=== PATIENT | female | born 1980 | race Caucasian/White ===

== ENCOUNTER 2017-05-02 10:38 | Emergency (ER) | payer BC ==
[2017-05-02] MEDS: SOD CHLORIDE 0.9% 1,000 ML IV (12:06)
[2017-05-02] MEDS: ONDANSETRON 4 MG INJ IV (12:06)
[2017-05-02] MEDS: LORAZEPAM 2 MG INJ IV (12:06)
[2017-05-02] MEDS: FAMOTIDINE 20 MG INJ IV (12:07)
[2017-05-02 12:16] LABS: ADD MAN DIFF? NO
[2017-05-02 12:18] LABS: WHITE BLOOD COUNT 13.1 10^3/ul (4.8-10.8)
[2017-05-02 12:18] LABS: BASOPHIL # 0.1 10^3/ul (0.0-0.1); BASOPHILS % 0.5 % (0.0-2.0); EOSINOPHILS # 0.1 10^3/ul (0.0-0.5); EOSINOPHILS % 0.4 % (0.0-7.0); HEMATOCRIT 35.3 % (37.0-47.0); HEMOGLOBIN 11.7 g/dl (12.0-16.0); LYMPHOCYTES % 23.1 % (15.0-51.0); MEAN CORPUSCULAR HEMOGLOBIN 27.2 pg (29.0-33.0); MEAN CORPUSCULAR HGB CONC 33.1 g/dl (32.0-37.0); MEAN CORPUSCULAR VOLUME 82.1 fl (82.0-101.0); MEAN PLATELET VOLUME 9.6 fl (7.4-10.4); MONOCYTE # 0.8 10^3/ul (0.3-0.9); MONOCYTES % 5.7 % (0.0-11.0); NEUTROPHIL # 9.2 10^3/ul (1.6-7.5); PLATELET COUNT 526 10^3/UL (140-415); RED CELL DISTRIBUTION WIDTH 15.6 % (11.5-14.5)
[2017-05-02 12:44] LABS: ALANINE AMINOTRANSFERASE 36 IU/L (13-69); ALBUMIN 4.8 g/dl (3.3-4.9); ALBUMIN/GLOBULIN RATIO 1.45; ALKALINE PHOSPHATASE 117 IU/L (42-121); ANION GAP 19 (8-16); ASPARTATE AMINO TRANSFERASE 33 IU/L (15-46); BILIRUBIN,INDIRECT 0.1 mg/dl (0-1.1); BILIRUBIN,TOTAL 0.1 mg/dl (0.2-1.3); BLOOD UREA NITROGEN 16 mg/dl (7-20); CALCIUM 10.1 mg/dl (8.4-10.2); CARBON DIOXIDE 28 mmol/L (21-31); CHLORIDE 103 mmol/L (97-110); CREATININE 0.73 mg/dl (0.44-1.00); GLUCOSE 204 mg/dl (70-220); LIPASE 95 U/L (23-300); POTASSIUM 4.4 mmol/L (3.5-5.1); SODIUM 146 mmol/L (135-144); TOTAL PROTEIN 8.1 g/dl (6.1-8.1)
[2017-05-02] MEDS: LIDOCAINE/MYLANTA 40 ML BTL PO (13:13)
[2017-05-02 13:55] LABS: ADD UMIC YES; UR ASCORBIC ACID NEGATIVE (NEGATIVE); UR BACTERIA FEW /HPF (NONE SEEN); UR BILIRUBIN (Dip) NEGATIVE (NEGATIVE); UR BLOOD (Dip) 1+ mg/dL (NEGATIVE); UR CLARITY CLEAR (CLEAR); UR COLOR YELLOW (YELLOW); UR GLUCOSE (Dip) NEGATIVE (NEGATIVE); UR KETONES (Dip) NEGATIVE (NEGATIVE); UR LEUKOCYTE ESTERASE (Dip) NEGATIVE Leu/ul (NEGATIVE); UR NITRITE (Dip) NEGATIVE (NEGATIVE); UR RBC 3 /HPF (0-5); UR SPECIFIC GRAVITY (Dip) 1.018 (1.003-1.030); UR SQUAMOUS EPITHELIAL CELL FEW /HPF (FEW); UR TOTAL PROTEIN (Dip) NEGATIVE (NEGATIVE); UR UROBILINOGEN (Dip) NEGATIVE (NEGATIVE); UR WBC 3 /HPF (0-5)
== END 2017-05-02 13:52 | disposition home or self-care (01) ==
LOC: FTE 10:38
DX: K31.84 Gastroparesis (principal); F41.9 Anxiety disorder, unspecified; I10 Essential (primary) hypertension; E11.9 Type 2 diabetes mellitus without complications; Z79.4 Long term (current) use of insulin
CPT/HCPCS: 36415; 80053; 81001; 83690; 85025; 96374; 96375; 99284-25

== ENCOUNTER 2017-07-01 08:29 | Emergency (ER) | payer BC ==
[2017-07-01] MEDS: ONDANSETRON 4 MG INJ IV (09:05)
[2017-07-01] MEDS: SOD CHLORIDE 0.9% 1,000 ML IV (09:05)
[2017-07-01] MEDS: morphine 4 MG/ML VIAL IV ×2 (09:05→09:49)
[2017-07-01 09:29] LABS: ADD MAN DIFF? NO
[2017-07-01 09:31] LABS: BASOPHILS % 0.3 % (0.0-2.0); EOSINOPHILS % 0.4 % (0.0-7.0); HEMATOCRIT 37.1 % (37.0-47.0); HEMOGLOBIN 11.8 g/dl (12.0-16.0); LYMPHOCYTES # 2.2 10^3/ul (0.8-2.9); LYMPHOCYTES % 23.8 % (15.0-51.0); MEAN CORPUSCULAR HEMOGLOBIN 27.3 pg (29.0-33.0); MEAN CORPUSCULAR HGB CONC 31.8 g/dl (32.0-37.0); MEAN CORPUSCULAR VOLUME 85.9 fl (82.0-101.0); MEAN PLATELET VOLUME 9.4 fl (7.4-10.4); MONOCYTE # 0.7 10^3/ul (0.3-0.9); MONOCYTES % 7.2 % (0.0-11.0); NEUTROPHIL # 6.1 10^3/ul (1.6-7.5); NEUTROPHILS % 68.1 % (39.0-77.0); PLATELET COUNT 511 10^3/UL (140-415); RED BLOOD COUNT 4.32 10^6/ul (4.20-5.40); RED CELL DISTRIBUTION WIDTH 14.6 % (11.5-14.5)
[2017-07-01] MEDS: LORAZEPAM 1 MG TAB PO (09:49)
[2017-07-01 10:01] LABS: ALANINE AMINOTRANSFERASE 33 IU/L (13-69); ALBUMIN 4.3 g/dl (3.3-4.9); ALBUMIN/GLOBULIN RATIO 1.26; ALKALINE PHOSPHATASE 98 IU/L (42-121); ANION GAP 19 (8-16); ASPARTATE AMINO TRANSFERASE 30 IU/L (15-46); BILIRUBIN,INDIRECT 0.3 mg/dl (0-1.1); BILIRUBIN,TOTAL 0.3 mg/dl (0.2-1.3); BLOOD UREA NITROGEN 10 mg/dl (7-20); CALCIUM 9.9 mg/dl (8.4-10.2); CARBON DIOXIDE 26 mmol/L (21-31); CHLORIDE 100 mmol/L (97-110); CREATININE 0.71 mg/dl (0.44-1.00); GLUCOSE 212 mg/dl (70-220); LIPASE 59 U/L (23-300); POTASSIUM 4.2 mmol/L (3.5-5.1); SODIUM 141 mmol/L (135-144); TOTAL PROTEIN 7.7 g/dl (6.1-8.1)
[2017-07-01 11:03] LABS: ADD UMIC YES; UR ASCORBIC ACID 20 mg/dL (NEGATIVE); UR BACTERIA FEW /HPF (NONE SEEN); UR BILIRUBIN (Dip) NEGATIVE (NEGATIVE); UR BLOOD (Dip) NEGATIVE (NEGATIVE); UR CLARITY CLOUDY (CLEAR); UR COLOR RED (YELLOW); UR GLUCOSE (Dip) NEGATIVE (NEGATIVE); UR KETONES (Dip) NEGATIVE (NEGATIVE); UR LEUKOCYTE ESTERASE (Dip) TRACE Leu/ul (NEGATIVE); UR MUCUS FEW /HPF (NONE SEEN); UR NITRITE (Dip) NEGATIVE (NEGATIVE); UR RBC 3 /HPF (0-5); UR SPECIFIC GRAVITY (Dip) 1.018 (1.003-1.030); UR SQUAMOUS EPITHELIAL CELL MANY /HPF (FEW); UR TOTAL PROTEIN (Dip) 1+ mg/dl (NEGATIVE); UR UROBILINOGEN (Dip) 2+ mg/dL (NEGATIVE); UR WBC 18 /HPF (0-5)
== END 2017-07-01 11:32 | disposition home or self-care (01) ==
LOC: FTE 08:29
DX: K31.84 Gastroparesis (principal); E11.9 Type 2 diabetes mellitus without complications; I10 Essential (primary) hypertension; Z79.4 Long term (current) use of insulin
CPT/HCPCS: 36415; 80053; 81001; 81025; 83690; 85025; 96374; 96375; 99284-25

== ENCOUNTER 2017-07-04 11:37 | Emergency (ER) | payer BC ==
[2017-07-04] MEDS: LORAZEPAM 2 MG INJ IV (12:42)
[2017-07-04] MEDS: SOD CHLORIDE 0.9% 1,000 ML IV (12:42)
[2017-07-04] MEDS: DICYCLOMINE 20 MG INJ IM (12:58)
[2017-07-04] MEDS: METOCLOPRAMIDE 10 MG INJ IM (15:10)
== END 2017-07-04 15:10 | disposition home or self-care (01) ==
LOC: FTE 11:37
DX: K31.84 Gastroparesis (principal); I10 Essential (primary) hypertension; E11.9 Type 2 diabetes mellitus without complications; Z79.4 Long term (current) use of insulin
CPT/HCPCS: 96372; 96374; 99284-25

== ENCOUNTER 2017-07-09 18:53 | Emergency (ER) | payer BC ==
[2017-07-09] MEDS ORDERED: ONDANSETRON (ODT) 4 MG TAB ODT (19:51)
[2017-07-09] MEDS: METOCLOPRAMIDE 10 MG INJ IM (20:00)
[2017-07-09] MEDS: FAMOTIDINE 20 MG TAB PO (20:00)
[2017-07-09] MEDS: LORAZEPAM 2 MG INJ IM (20:00)
[2017-07-09 20:23] LABS: ADD MAN DIFF? NO
[2017-07-09 20:25] LABS: BASOPHILS % 0.3 % (0.0-2.0); EOSINOPHILS % 0.1 % (0.0-7.0); HEMATOCRIT 37.3 % (37.0-47.0); HEMOGLOBIN 11.9 g/dl (12.0-16.0); LYMPHOCYTES # 1.9 10^3/ul (0.8-2.9); LYMPHOCYTES % 15.9 % (15.0-51.0); MEAN CORPUSCULAR HEMOGLOBIN 27.4 pg (29.0-33.0); MEAN CORPUSCULAR HGB CONC 31.9 g/dl (32.0-37.0); MEAN CORPUSCULAR VOLUME 85.9 fl (82.0-101.0); MEAN PLATELET VOLUME 9.4 fl (7.4-10.4); MONOCYTE # 0.6 10^3/ul (0.3-0.9); MONOCYTES % 5.4 % (0.0-11.0); NEUTROPHIL # 9.3 10^3/ul (1.6-7.5); PLATELET COUNT 533 10^3/UL (140-415); RED BLOOD COUNT 4.34 10^6/ul (4.20-5.40); RED CELL DISTRIBUTION WIDTH 13.8 % (11.5-14.5)
[2017-07-09 20:25] LABS: WHITE BLOOD COUNT 11.9 10^3/ul (4.8-10.8)
[2017-07-09 20:48] LABS: ANION GAP 20 (8-16); BLOOD UREA NITROGEN 17 mg/dl (7-20); CALCIUM 10.2 mg/dl (8.4-10.2); CARBON DIOXIDE 27 mmol/L (21-31); CHLORIDE 101 mmol/L (97-110); CREATININE 0.89 mg/dl (0.44-1.00); GLUCOSE 171 mg/dl (70-220); POTASSIUM 4.9 mmol/L (3.5-5.1); SODIUM 143 mmol/L (135-144)
[2017-07-09] MEDS: morphine 4 MG/ML VIAL IV (21:16)
[2017-07-09] MEDS: SOD CHLORIDE 0.9% 1,000 ML IV (21:16)
[2017-07-09] MEDS: ONDANSETRON 4 MG INJ IV ×2 (21:16→22:46)
[2017-07-09] MEDS: HYDROmorphONE 1 MG/5 ML IV SYRINGE IV (22:47)
== END 2017-07-10 00:13 | disposition home or self-care (01) ==
LOC: FTE 07-10 00:13
DX: F41.9 Anxiety disorder, unspecified (principal); R10.84 Generalized abdominal pain; E11.9 Type 2 diabetes mellitus without complications; I10 Essential (primary) hypertension; R11.2 Nausea with vomiting, unspecified; Z79.4 Long term (current) use of insulin
CPT/HCPCS: 80048; 85025; 93005; 96372; 96374; 96375; 96376; 99284-25

== ENCOUNTER 2017-07-15 10:52 | Emergency (ER) | payer BC ==
[2017-07-15] MEDS: clonAZEPAM 0.5 MG TAB PO (12:48)
== END 2017-07-15 13:38 | disposition home or self-care (01) ==
LOC: E/R 10:52
DX: F41.1 Generalized anxiety disorder (principal); I10 Essential (primary) hypertension; E11.9 Type 2 diabetes mellitus without complications; Z79.4 Long term (current) use of insulin
CPT/HCPCS: 36415; 99283-25

== ENCOUNTER 2017-08-21 12:01 | Inpatient (IN) | payer BC ==
[2017-08-21 13:10] LABS: ADD MAN DIFF? NO
[2017-08-21 13:11] LABS: WHITE BLOOD COUNT 9.6 10^3/ul (4.8-10.8)
[2017-08-21 13:11] LABS: BASOPHILS % 0.3 % (0.0-2.0); EOSINOPHILS # 0.1 10^3/ul (0.0-0.5); EOSINOPHILS % 0.7 % (0.0-7.0); HEMATOCRIT 37.5 % (37.0-47.0); LYMPHOCYTES % 20.6 % (15.0-51.0); MEAN CORPUSCULAR HEMOGLOBIN 26.8 pg (29.0-33.0); MEAN CORPUSCULAR VOLUME 83.9 fl (82.0-101.0); MEAN PLATELET VOLUME 9.1 fl (7.4-10.4); MONOCYTE # 0.6 10^3/ul (0.3-0.9); MONOCYTES % 6.1 % (0.0-11.0); NEUTROPHIL # 6.9 10^3/ul (1.6-7.5); PLATELET COUNT 502 10^3/UL (140-415); RED BLOOD COUNT 4.47 10^6/ul (4.20-5.40); RED CELL DISTRIBUTION WIDTH 13.1 % (11.5-14.5)
[2017-08-21] MEDS: ONDANSETRON 4 MG INJ IV ×2 (13:16→13:51)
[2017-08-21] MEDS: SOD CHLORIDE 0.9% 1,000 ML IV ×2 (13:16→13:54)
[2017-08-21] MEDS: DICYCLOMINE 20 MG INJ IM (13:16)
[2017-08-21 13:21] LABS: ADD UMIC NO; UR ASCORBIC ACID NEGATIVE (NEGATIVE); UR BILIRUBIN (Dip) NEGATIVE (NEGATIVE); UR BLOOD (Dip) NEGATIVE (NEGATIVE); UR CLARITY CLEAR (CLEAR); UR COLOR YELLOW (YELLOW); UR GLUCOSE (Dip) 1+ mg/dL (NEGATIVE); UR KETONES (Dip) NEGATIVE (NEGATIVE); UR LEUKOCYTE ESTERASE (Dip) NEGATIVE Leu/ul (NEGATIVE); UR NITRITE (Dip) NEGATIVE (NEGATIVE); UR SPECIFIC GRAVITY (Dip) 1.018 (1.003-1.030); UR TOTAL PROTEIN (Dip) NEGATIVE (NEGATIVE); UR UROBILINOGEN (Dip) NEGATIVE (NEGATIVE)
[2017-08-21 13:30] LABS: ALANINE AMINOTRANSFERASE 25 IU/L (13-69); ALBUMIN 4.8 g/dl (3.3-4.9); ALBUMIN/GLOBULIN RATIO 1.23; ALKALINE PHOSPHATASE 122 IU/L (42-121); ANION GAP 16 (8-16); ASPARTATE AMINO TRANSFERASE 23 IU/L (15-46); BILIRUBIN,INDIRECT 0.3 mg/dl (0-1.1); BILIRUBIN,TOTAL 0.3 mg/dl (0.2-1.3); BLOOD UREA NITROGEN 14 mg/dl (7-20); CALCIUM 10.1 mg/dl (8.4-10.2); CARBON DIOXIDE 28 mmol/L (21-31); CHLORIDE 100 mmol/L (97-110); CREATININE 0.69 mg/dl (0.44-1.00); GLUCOSE 244 mg/dl (70-220); LIPASE 1422 U/L (23-300); POTASSIUM 4.7 mmol/L (3.5-5.1); SODIUM 139 mmol/L (135-144); TOTAL PROTEIN 8.7 g/dl (6.1-8.1)
[2017-08-21] MEDS: HYDROmorphONE 0.5 MG/0.5 ML SYG IV ×3 (13:51→22:56)
[2017-08-21] MEDS ORDERED: NACL 0.9% 3 ML SYG IV (14:30)
[2017-08-21 14:33] LABS: CHOLESTEROL 255 mg/dl (100-200)
[2017-08-21 14:33] LABS: CHOL/HDL RATIO 3.3 RATIO; HDL CHOLESTEROL 77 mg/dl (34-82); LDL CHOLESTEROL,CALCULATED 130 mg/dl; TRIGLYCERIDES 242 mg/dl (0-149)
[2017-08-21 14:36] LABS: HEMOGLOBIN A1C 7.9 % (0-5.9)
[2017-08-21] MEDS ORDERED: GLUCOSE GEL 15 GRAM TUBE PO ×2 (15:00)
[2017-08-21] MEDS ORDERED: GLUCOSE GEL 15 GRAM TUBE BUCCAL (15:00)
[2017-08-21] MEDS ORDERED: DEXTROSE 50% 50 ML SYRINGE IV ×2 (15:00)
[2017-08-21] MEDS ORDERED: GLUCAGON 1 MG INJ IM (15:00)
[2017-08-21] MEDS: DEXTROSE 5%-0.45% NACL 1,000 ML IV (15:28)
[2017-08-21] MEDS: morphine 2 MG INJ IV (15:40)
[2017-08-21] MEDS: PANTOPRAZOLE 40 MG INJ IV (17:07)
[2017-08-21] MEDS: METOCLOPRAMIDE 10 MG INJ IV (17:59)
[2017-08-21] MEDS: INSULIN ASPART [NOVOLOG] 3 ML PEN SC ×2 (18:56→21:00)
[2017-08-21] MEDS ORDERED: clonAZEPAM 0.5 MG TAB PO (21:00)
[2017-08-21] MEDS: GABAPENTIN 300 MG CAP PO (21:00)
[2017-08-21] MEDS: INSULIN GLARGINE [LANtus] 3 ML PEN SC (21:11)
[2017-08-22] MEDS: morphine 2 MG INJ IV (02:57)
[2017-08-22] MEDS: LORAZEPAM 2 MG INJ IV (03:19)
[2017-08-22] MEDS: DEXTROSE 5%-0.45% NACL 1,000 ML IV (04:15)
[2017-08-22 05:07] LABS: ADD MAN DIFF? NO
[2017-08-22 05:09] LABS: WHITE BLOOD COUNT 9.3 10^3/ul (4.8-10.8)
[2017-08-22 05:09] LABS: BASOPHILS % 0.3 % (0.0-2.0); EOSINOPHILS # 0.1 10^3/ul (0.0-0.5); EOSINOPHILS % 0.8 % (0.0-7.0); HEMATOCRIT 30.9 % (37.0-47.0); HEMOGLOBIN 9.8 g/dl (12.0-16.0); LYMPHOCYTES # 1.1 10^3/ul (0.8-2.9); LYMPHOCYTES % 12.2 % (15.0-51.0); MEAN CORPUSCULAR HEMOGLOBIN 26.5 pg (29.0-33.0); MEAN CORPUSCULAR HGB CONC 31.7 g/dl (32.0-37.0); MEAN CORPUSCULAR VOLUME 83.5 fl (82.0-101.0); MEAN PLATELET VOLUME 9.2 fl (7.4-10.4); MONOCYTE # 0.7 10^3/ul (0.3-0.9); MONOCYTES % 7.7 % (0.0-11.0); NEUTROPHIL # 7.3 10^3/ul (1.6-7.5); NEUTROPHILS % 78.6 % (39.0-77.0); PLATELET COUNT 406 10^3/UL (140-415)
[2017-08-22] MEDS: PANTOPRAZOLE 40 MG INJ IV ×2 (05:25→17:22)
[2017-08-22 05:28] LABS: LIPASE 54 U/L (23-300)
[2017-08-22 05:46] LABS: ALANINE AMINOTRANSFERASE 24 IU/L (13-69); ALBUMIN 3.6 g/dl (3.3-4.9); ALBUMIN/GLOBULIN RATIO 1.24; ALKALINE PHOSPHATASE 77 IU/L (42-121); ANION GAP 11 (8-16); ASPARTATE AMINO TRANSFERASE 19 IU/L (15-46); BILIRUBIN,INDIRECT 0.4 mg/dl (0-1.1); BILIRUBIN,TOTAL 0.4 mg/dl (0.2-1.3); BLOOD UREA NITROGEN 8 mg/dl (7-20); CALCIUM 8.9 mg/dl (8.4-10.2); CARBON DIOXIDE 28 mmol/L (21-31); CHLORIDE 103 mmol/L (97-110); CREATININE 0.65 mg/dl (0.44-1.00); GLUCOSE 137 mg/dl (70-220); MAGNESIUM 1.6 mg/dl (1.7-2.5); POTASSIUM 3.7 mmol/L (3.5-5.1); SODIUM 138 mmol/L (135-144); TOTAL PROTEIN 6.5 g/dl (6.1-8.1)
[2017-08-22] MEDS: HYDROmorphONE 0.5 MG/0.5 ML SYG IV ×4 (06:45→22:35)
[2017-08-22] MEDS: INSULIN ASPART [NOVOLOG] 3 ML PEN SC ×4 (08:03→21:00)
[2017-08-22] MEDS: BUPROPION (XL) 150 MG TAB PO (09:00)
[2017-08-22] MEDS: LISINOPRIL 20 MG TAB PO (09:00)
[2017-08-22] MEDS: METOCLOPRAMIDE 10 MG INJ IV ×2 (10:01→20:59)
[2017-08-22] MEDS: MAGNESIUM SULFATE 2 GM/50 ML 50 ML IVPB (12:13)
[2017-08-22] MEDS: POTASSIUM CHLORIDE 10 MEQ in SOD CHLORIDE 0.45% 1,000 ML IV ×2 (13:10→22:00)
[2017-08-22 19:45] LABS: HEPATITIS B SURFACE ANTIGEN NEGATIVE (NEGATIVE)
[2017-08-22 20:02] LABS: HEPATITIS C VIRAL ANTIBODY NEGATIVE (NEGATIVE)
[2017-08-22 20:03] LABS: HEPATITIS B SURFACE ANTIBODY NEGATIVE (NEGATIVE)
[2017-08-22] MEDS: GABAPENTIN 300 MG CAP PO (20:59)
[2017-08-22] MEDS: INSULIN GLARGINE [LANtus] 3 ML PEN SC (21:06)
[2017-08-23] MEDS: morphine LIQ (10 MG/5 ML) CUP PO (01:15)
[2017-08-23] MEDS: METOCLOPRAMIDE 10 MG INJ IV ×2 (03:14→08:59)
[2017-08-23] MEDS: HYDROmorphONE 0.5 MG/0.5 ML SYG IV ×2 (03:15→10:43)
[2017-08-23] MEDS: PANTOPRAZOLE 40 MG INJ IV (05:23)
[2017-08-23] MEDS: LORAZEPAM 2 MG INJ IV ×2 (05:24→13:27)
[2017-08-23 05:54] LABS: ADD MAN DIFF? NO
[2017-08-23 06:00] LABS: BASOPHILS % 0.3 % (0.0-2.0); EOSINOPHILS # 0.1 10^3/ul (0.0-0.5); EOSINOPHILS % 0.9 % (0.0-7.0); HEMOGLOBIN 10.4 g/dl (12.0-16.0); LYMPHOCYTES # 1.4 10^3/ul (0.8-2.9); LYMPHOCYTES % 23.9 % (15.0-51.0); MEAN CORPUSCULAR HEMOGLOBIN 26.2 pg (29.0-33.0); MEAN CORPUSCULAR HGB CONC 31.5 g/dl (32.0-37.0); MEAN CORPUSCULAR VOLUME 83.1 fl (82.0-101.0); MEAN PLATELET VOLUME 9.5 fl (7.4-10.4); MONOCYTE # 0.7 10^3/ul (0.3-0.9); MONOCYTES % 12.1 % (0.0-11.0); NEUTROPHIL # 3.7 10^3/ul (1.6-7.5); NEUTROPHILS % 62.5 % (39.0-77.0); PLATELET COUNT 408 10^3/UL (140-415); RED BLOOD COUNT 3.97 10^6/ul (4.20-5.40)
[2017-08-23 06:00] LABS: WHITE BLOOD COUNT 5.9 10^3/ul (4.8-10.8)
[2017-08-23 06:25] LABS: ALANINE AMINOTRANSFERASE 24 IU/L (13-69); ALBUMIN 3.8 g/dl (3.3-4.9); ALBUMIN/GLOBULIN RATIO 1.15; ALKALINE PHOSPHATASE 81 IU/L (42-121); ANION GAP 12 (8-16); ASPARTATE AMINO TRANSFERASE 23 IU/L (15-46); BILIRUBIN,INDIRECT 0.4 mg/dl (0-1.1); BILIRUBIN,TOTAL 0.4 mg/dl (0.2-1.3); BLOOD UREA NITROGEN 7 mg/dl (7-20); CALCIUM 9.3 mg/dl (8.4-10.2); CARBON DIOXIDE 27 mmol/L (21-31); CHLORIDE 103 mmol/L (97-110); CREATININE 0.66 mg/dl (0.44-1.00); GLUCOSE 111 mg/dl (70-220); POTASSIUM 4.2 mmol/L (3.5-5.1); SODIUM 138 mmol/L (135-144); TOTAL PROTEIN 7.1 g/dl (6.1-8.1)
[2017-08-23] MEDS: INSULIN ASPART [NOVOLOG] 3 ML PEN SC ×2 (07:35→11:45)
[2017-08-23] MEDS: POTASSIUM CHLORIDE 10 MEQ in SOD CHLORIDE 0.45% 1,000 ML IV ×2 (08:00→11:45)
[2017-08-23] MEDS: BARIUM SULF 2% 450 ML BTL (BERRY SMOOTHIE) PO (08:58)
[2017-08-23] MEDS: BUPROPION (XL) 150 MG TAB PO (09:00)
[2017-08-23] MEDS: LISINOPRIL 20 MG TAB PO (09:00)
[2017-08-23] MEDS: IODIXANOL LOCM 100 ML BTL (13:28)
[2017-08-23] MEDS: SOD CHLORIDE 0.9% 100 ML (13:28)
== END 2017-08-23 17:27 | disposition home or self-care (01) | DRG 440 ==
LOC: FTE 12:01 → MS3 14:00
DX: K85.90 Acute pancreatitis without necrosis or infection, unspecified (principal); I10 Essential (primary) hypertension; E11.43 Type 2 diabetes mellitus with diabetic autonomic (poly)neuropathy; K31.84 Gastroparesis; F41.9 Anxiety disorder, unspecified; F12.10 Cannabis abuse, uncomplicated; D64.9 Anemia, unspecified; E83.42 Hypomagnesemia; F17.210 Nicotine dependence, cigarettes, uncomplicated
CPT/HCPCS: 74177; 76705; 80053; 80061; 81003; 81025; 82962; 83036; 83690; 83735; 85025; 86706; 86708; 86709; 86803; 87340

== ENCOUNTER 2017-08-27 21:53 | Emergency (ER) | payer BC ==
[2017-08-27] MEDS: ONDANSETRON 4 MG INJ IV (23:18)
[2017-08-27] MEDS: SOD CHLORIDE 0.9% 1,000 ML IV (23:18)
[2017-08-27] MEDS: HYDROmorphONE 0.5 MG/0.5 ML SYG IV (23:18)
[2017-08-27 23:21] LABS: ADD MAN DIFF? NO
[2017-08-27 23:25] LABS: BASOPHILS % 0.2 % (0.0-2.0); EOSINOPHILS # 0.1 10^3/ul (0.0-0.5); EOSINOPHILS % 0.6 % (0.0-7.0); HEMATOCRIT 33.8 % (37.0-47.0); HEMOGLOBIN 10.6 g/dl (12.0-16.0); LYMPHOCYTES # 2.2 10^3/ul (0.8-2.9); LYMPHOCYTES % 22.7 % (15.0-51.0); MEAN CORPUSCULAR HGB CONC 31.4 g/dl (32.0-37.0); MEAN PLATELET VOLUME 9.7 fl (7.4-10.4); MONOCYTE # 0.9 10^3/ul (0.3-0.9); NEUTROPHIL # 6.4 10^3/ul (1.6-7.5); NEUTROPHILS % 67.2 % (39.0-77.0); PLATELET COUNT 502 10^3/UL (140-415); RED BLOOD COUNT 4.07 10^6/ul (4.20-5.40); RED CELL DISTRIBUTION WIDTH 13.1 % (11.5-14.5)
[2017-08-27 23:25] LABS: WHITE BLOOD COUNT 9.5 10^3/ul (4.8-10.8)
[2017-08-27 23:38] LABS: ADD UMIC YES; UR ASCORBIC ACID NEGATIVE (NEGATIVE); UR BACTERIA FEW /HPF (NONE SEEN); UR BILIRUBIN (Dip) NEGATIVE (NEGATIVE); UR BLOOD (Dip) NEGATIVE (NEGATIVE); UR CLARITY SLIGHTLY CLOUDY (CLEAR); UR COLOR YELLOW (YELLOW); UR GLUCOSE (Dip) NEGATIVE (NEGATIVE); UR HYALINE CAST FEW /HPF (NONE SEEN); UR KETONES (Dip) NEGATIVE (NEGATIVE); UR LEUKOCYTE ESTERASE (Dip) NEGATIVE Leu/ul (NEGATIVE); UR MUCUS FEW /HPF (NONE SEEN); UR NITRITE (Dip) NEGATIVE (NEGATIVE); UR RBC 1 /HPF (0-5); UR SPECIFIC GRAVITY (Dip) 1.024 (1.003-1.030); UR SQUAMOUS EPITHELIAL CELL FEW /HPF (FEW); UR TOTAL PROTEIN (Dip) 1+ mg/dl (NEGATIVE); UR UROBILINOGEN (Dip) NEGATIVE (NEGATIVE); UR WBC 2 /HPF (0-5)
[2017-08-27 23:44] LABS: ALANINE AMINOTRANSFERASE 25 IU/L (13-69); ALBUMIN 3.9 g/dl (3.3-4.9); ALBUMIN/GLOBULIN RATIO 1.18; ALKALINE PHOSPHATASE 104 IU/L (42-121); ANION GAP 14 (8-16); ASPARTATE AMINO TRANSFERASE 22 IU/L (15-46); BILIRUBIN,INDIRECT 0.1 mg/dl (0-1.1); BILIRUBIN,TOTAL 0.1 mg/dl (0.2-1.3); BLOOD UREA NITROGEN 12 mg/dl (7-20); CALCIUM 9.6 mg/dl (8.4-10.2); CARBON DIOXIDE 26 mmol/L (21-31); CHLORIDE 103 mmol/L (97-110); CREATININE 0.67 mg/dl (0.44-1.00); GLUCOSE 164 mg/dl (70-220); LIPASE 110 U/L (23-300); POTASSIUM 4.5 mmol/L (3.5-5.1); SODIUM 138 mmol/L (135-144); TOTAL PROTEIN 7.2 g/dl (6.1-8.1)
== END 2017-08-28 01:58 | disposition home or self-care (01) ==
LOC: FTE 08-28 01:58
DX: R10.13 Epigastric pain (principal); R11.10 Vomiting, unspecified; I10 Essential (primary) hypertension; E11.9 Type 2 diabetes mellitus without complications; Z79.4 Long term (current) use of insulin
CPT/HCPCS: 36415; 80053; 81001; 83690; 85025; 96374; 96375; 99284-25

== ENCOUNTER 2017-09-12 12:25 | Emergency (ER) | payer BC ==
[2017-09-12] MEDS: ONDANSETRON (ODT) 4 MG TAB ODT (12:48)
[2017-09-12] MEDS: LORAZEPAM 1 MG TAB PO (12:49)
[2017-09-12] MEDS: IBUPROFEN 800 MG TAB PO (12:49)
== END 2017-09-12 13:21 | disposition home or self-care (01) ==
LOC: E/R 12:25
DX: R10.84 Generalized abdominal pain (principal); E11.9 Type 2 diabetes mellitus without complications; I10 Essential (primary) hypertension; Z79.4 Long term (current) use of insulin
CPT/HCPCS: 99283

== ENCOUNTER 2017-09-15 05:44 | Emergency (ER) | payer BC ==
[2017-09-15] MEDS ORDERED: ONDANSETRON (ODT) 4 MG TAB ODT (06:23)
[2017-09-15] MEDS ORDERED: METOCLOPRAMIDE 10 MG INJ IM (06:30)
[2017-09-15] MEDS ORDERED: LORAZEPAM 2 MG INJ IM (06:30)
[2017-09-15] MEDS: METOCLOPRAMIDE 10 MG INJ IV (06:39)
[2017-09-15] MEDS: LORAZEPAM 2 MG INJ IV ×2 (06:39→07:51)
[2017-09-15] MEDS: SOD CHLORIDE 0.9% 1,000 ML IV (06:40)
[2017-09-15] MEDS: ONDANSETRON 4 MG INJ IV (06:41)
[2017-09-15] MEDS: FAMOTIDINE 20 MG INJ IV (06:41)
[2017-09-15 06:52] LABS: ADD MAN DIFF? NO
[2017-09-15 06:59] LABS: WHITE BLOOD COUNT 13.1 10^3/ul (4.8-10.8)
[2017-09-15 06:59] LABS: BASOPHILS % 0.2 % (0.0-2.0); HEMATOCRIT 33.3 % (37.0-47.0); HEMOGLOBIN 10.5 g/dl (12.0-16.0); LYMPHOCYTES # 1.3 10^3/ul (0.8-2.9); LYMPHOCYTES % 10.1 % (15.0-51.0); MEAN CORPUSCULAR HEMOGLOBIN 25.5 pg (29.0-33.0); MEAN CORPUSCULAR HGB CONC 31.5 g/dl (32.0-37.0); MEAN CORPUSCULAR VOLUME 80.8 fl (82.0-101.0); MEAN PLATELET VOLUME 9.8 fl (7.4-10.4); MONOCYTE # 0.2 10^3/ul (0.3-0.9); MONOCYTES % 1.8 % (0.0-11.0); NEUTROPHIL # 11.5 10^3/ul (1.6-7.5); NEUTROPHILS % 87.6 % (39.0-77.0); PLATELET COUNT 525 10^3/UL (140-415); RED BLOOD COUNT 4.12 10^6/ul (4.20-5.40); RED CELL DISTRIBUTION WIDTH 14.8 % (11.5-14.5)
[2017-09-15 07:15] LABS: ANION GAP 22 (8-16); BLOOD UREA NITROGEN 25 mg/dl (7-20); CALCIUM 10.2 mg/dl (8.4-10.2); CARBON DIOXIDE 22 mmol/L (21-31); CHLORIDE 105 mmol/L (97-110); GLUCOSE 311 mg/dl (70-220); LIPASE 84 U/L (23-300); POTASSIUM 4.6 mmol/L (3.5-5.1); SODIUM 144 mmol/L (135-144)
[2017-09-15 08:04] LABS: ADD UMIC YES; UR ASCORBIC ACID 40 mg/dL (NEGATIVE); UR BILIRUBIN (Dip) NEGATIVE (NEGATIVE); UR BLOOD (Dip) NEGATIVE (NEGATIVE); UR CLARITY CLEAR (CLEAR); UR COLOR STRAW (YELLOW); UR GLUCOSE (Dip) 3+ mg/dL (NEGATIVE); UR KETONES (Dip) 2+ mg/dL (NEGATIVE); UR LEUKOCYTE ESTERASE (Dip) NEGATIVE Leu/ul (NEGATIVE); UR NITRITE (Dip) NEGATIVE (NEGATIVE); UR RBC 1 /HPF (0-5); UR SPECIFIC GRAVITY (Dip) 1.023 (1.003-1.030); UR SQUAMOUS EPITHELIAL CELL FEW /HPF (FEW); UR TOTAL PROTEIN (Dip) 1+ mg/dl (NEGATIVE); UR UROBILINOGEN (Dip) NEGATIVE (NEGATIVE); UR WBC 0 /HPF (0-5)
== END 2017-09-15 09:38 | disposition home or self-care (01) ==
LOC: E/R 05:44
DX: R10.13 Epigastric pain (principal); R11.2 Nausea with vomiting, unspecified; E11.8 Type 2 diabetes mellitus with unspecified complications; E11.43 Type 2 diabetes mellitus with diabetic autonomic (poly)neuropathy; E11.65 Type 2 diabetes mellitus with hyperglycemia; I10 Essential (primary) hypertension; Z79.4 Long term (current) use of insulin
CPT/HCPCS: 36415; 80048; 81001; 82962; 83690; 85025; 96374; 96375; 96376; 99284-25

== ENCOUNTER 2017-09-16 11:20 | Observation (INO) | payer BC ==
[2017-09-16] MEDS: ONDANSETRON 4 MG INJ IV ×3 (11:36→14:10)
[2017-09-16] MEDS: HYDROmorphONE 1 MG/ML SYG IV ×3 (11:36→14:10)
[2017-09-16] MEDS: SOD CHLORIDE 0.9% 1,000 ML IV ×3 (11:37→19:37)
[2017-09-16 11:46] LABS: ADD MAN DIFF? NO
[2017-09-16 11:51] LABS: BASOPHILS % 0.2 % (0.0-2.0); HEMATOCRIT 35.6 % (37.0-47.0); HEMOGLOBIN 11.4 g/dl (12.0-16.0); LYMPHOCYTES # 2.1 10^3/ul (0.8-2.9); LYMPHOCYTES % 11.7 % (15.0-51.0); MEAN CORPUSCULAR HEMOGLOBIN 26.3 pg (29.0-33.0); MEAN CORPUSCULAR VOLUME 82.2 fl (82.0-101.0); MEAN PLATELET VOLUME 9.7 fl (7.4-10.4); MONOCYTE # 0.9 10^3/ul (0.3-0.9); MONOCYTES % 5.2 % (0.0-11.0); NEUTROPHIL # 14.6 10^3/ul (1.6-7.5); NEUTROPHILS % 82.3 % (39.0-77.0); PLATELET COUNT 539 10^3/UL (140-415); RED BLOOD COUNT 4.33 10^6/ul (4.20-5.40); RED CELL DISTRIBUTION WIDTH 15.1 % (11.5-14.5)
[2017-09-16 11:51] LABS: WHITE BLOOD COUNT 17.7 10^3/ul (4.8-10.8)
[2017-09-16 12:09] LABS: ALANINE AMINOTRANSFERASE 28 IU/L (13-69); ALBUMIN/GLOBULIN RATIO 1.42; ALKALINE PHOSPHATASE 118 IU/L (42-121); ANION GAP 20 (8-16); ASPARTATE AMINO TRANSFERASE 27 IU/L (15-46); BLOOD UREA NITROGEN 22 mg/dl (7-20); CALCIUM 10.1 mg/dl (8.4-10.2); CARBON DIOXIDE 24 mmol/L (21-31); CHLORIDE 101 mmol/L (97-110); CREATININE 0.84 mg/dl (0.44-1.00); GLUCOSE 301 mg/dl (70-220); LIPASE 103 U/L (23-300); POTASSIUM 3.9 mmol/L (3.5-5.1); SODIUM 141 mmol/L (135-144); TOTAL PROTEIN 8.5 g/dl (6.1-8.1)
[2017-09-16 12:32] LABS: BILIRUBIN,INDIRECT 0.7 mg/dl (0-1.1); BILIRUBIN,TOTAL 0.7 mg/dl (0.2-1.3)
[2017-09-16] MEDS: LORAZEPAM 2 MG INJ IV ×2 (14:22→18:46)
[2017-09-16] MEDS ORDERED: ONDANSETRON 4 MG INJ IV ×2 (14:30→18:00)
[2017-09-16] MEDS ORDERED: ACETAMINOPHEN 325 MG TAB PO (14:30)
[2017-09-16] MEDS ORDERED: GLUCOSE GEL 15 GRAM TUBE PO ×2 (16:30)
[2017-09-16] MEDS ORDERED: GLUCAGON 1 MG INJ IM (16:30)
[2017-09-16] MEDS ORDERED: DEXTROSE 50% 50 ML SYRINGE IV ×2 (16:30)
[2017-09-16] MEDS ORDERED: GLUCOSE GEL 15 GRAM TUBE BUCCAL (16:30)
[2017-09-16 16:50] LABS: ADD UMIC YES; UR ASCORBIC ACID NEGATIVE (NEGATIVE); UR BACTERIA MANY /HPF (NONE SEEN); UR BILIRUBIN (Dip) NEGATIVE (NEGATIVE); UR BLOOD (Dip) NEGATIVE (NEGATIVE); UR CLARITY SLIGHTLY CLOUDY (CLEAR); UR COLOR YELLOW (YELLOW); UR GLUCOSE (Dip) 3+ mg/dL (NEGATIVE); UR KETONES (Dip) 2+ mg/dL (NEGATIVE); UR LEUKOCYTE ESTERASE (Dip) NEGATIVE Leu/ul (NEGATIVE); UR MUCUS MANY /HPF (NONE SEEN); UR NITRITE (Dip) NEGATIVE (NEGATIVE); UR RBC 1 /HPF (0-5); UR SPECIFIC GRAVITY (Dip) 1.024 (1.003-1.030); UR SQUAMOUS EPITHELIAL CELL FEW /HPF (FEW); UR TOTAL PROTEIN (Dip) 2+ mg/dl (NEGATIVE); UR UROBILINOGEN (Dip) NEGATIVE (NEGATIVE); UR WBC 2 /HPF (0-5)
[2017-09-16 17:23] LABS: AMPHETAMINE/METHAMPHETAMINE Negative (NEGATIVE); BARBITURATES Negative (NEGATIVE); BENZODIAZEPINES Negative (NEGATIVE); CANNABINOIDS Positive (NEGATIVE); COCAINE Negative (NEGATIVE); OPIATES Positive (NEGATIVE)
[2017-09-16] MEDS ORDERED: NACL 0.9% 3 ML SYG IV (18:00)
[2017-09-16] MEDS: METOCLOPRAMIDE 10 MG INJ IV (18:35)
[2017-09-16] MEDS: PANTOPRAZOLE 40 MG INJ IV (18:35)
[2017-09-16] MEDS: INSULIN ASPART [NOVOLOG] 3 ML PEN SC ×3 (19:45→22:01)
[2017-09-16] MEDS ORDERED: INSULIN GLARGINE [LANTus] (100 UNITS/ML) SYG SC (20:00)
[2017-09-16] MEDS: GABAPENTIN 300 MG CAP PO (22:00)
[2017-09-16] MEDS: INSULIN GLARGINE [LANTus] (100 UNITS/ML) SYG SC (22:00)
[2017-09-16] MEDS ORDERED: AL HYDROX/MG HYDROX/SIMETH 30 ML CUP (22:35)
[2017-09-16] MEDS: HYDROCODONE/APAP (5/325) TAB PO (22:40)
[2017-09-16] MEDS: AL HYDROX/MG HYDROX/SIMETH 30 ML CUP PO (22:40)
[2017-09-17] MEDS: METOCLOPRAMIDE 10 MG INJ IV ×4 (01:14→17:12)
[2017-09-17] MEDS: SOD CHLORIDE 0.9% 1,000 ML IV ×3 (04:21→20:29)
[2017-09-17] MEDS: HYDROCODONE/APAP (5/325) TAB PO ×2 (05:19→10:43)
[2017-09-17] MEDS: PANTOPRAZOLE 40 MG INJ IV ×2 (05:19→17:12)
[2017-09-17] MEDS: AL HYDROX/MG HYDROX/SIMETH 30 ML CUP PO (05:30)
[2017-09-17 05:33] LABS: ADD MAN DIFF? NO
[2017-09-17 05:39] LABS: BASOPHILS % 0.3 % (0.0-2.0); EOSINOPHILS % 0.1 % (0.0-7.0); HEMATOCRIT 29.9 % (37.0-47.0); HEMOGLOBIN 9.5 g/dl (12.0-16.0); LYMPHOCYTES # 2.4 10^3/ul (0.8-2.9); LYMPHOCYTES % 20.9 % (15.0-51.0); MEAN CORPUSCULAR HEMOGLOBIN 26.6 pg (29.0-33.0); MEAN CORPUSCULAR HGB CONC 31.8 g/dl (32.0-37.0); MEAN CORPUSCULAR VOLUME 83.8 fl (82.0-101.0); MEAN PLATELET VOLUME 9.5 fl (7.4-10.4); MONOCYTE # 0.9 10^3/ul (0.3-0.9); MONOCYTES % 8.1 % (0.0-11.0); NEUTROPHILS % 70.2 % (39.0-77.0); PLATELET COUNT 391 10^3/UL (140-415); RED BLOOD COUNT 3.57 10^6/ul (4.20-5.40)
[2017-09-17 05:39] LABS: WHITE BLOOD COUNT 11.4 10^3/ul (4.8-10.8)
[2017-09-17 05:47] LABS: HEMOGLOBIN A1C 7.9 % (0-5.9)
[2017-09-17 06:01] LABS: CHOL/HDL RATIO 2.8 RATIO; CHOLESTEROL 149 mg/dl (100-200); HDL CHOLESTEROL 53 mg/dl (34-82); LDL CHOLESTEROL,CALCULATED 71 mg/dl; MAGNESIUM 1.8 mg/dl (1.7-2.5); TRIGLYCERIDES 125 mg/dl (0-149)
[2017-09-17 06:01] LABS: PHOSPHORUS 3.4 mg/dl (2.5-4.9)
[2017-09-17 06:08] LABS: ALANINE AMINOTRANSFERASE 33 IU/L (13-69); ALBUMIN 3.4 g/dl (3.3-4.9); ALBUMIN/GLOBULIN RATIO 1.09; ALKALINE PHOSPHATASE 69 IU/L (42-121); ANION GAP 13 (8-16); ASPARTATE AMINO TRANSFERASE 27 IU/L (15-46); BILIRUBIN,INDIRECT 0.5 mg/dl (0-1.1); BILIRUBIN,TOTAL 0.5 mg/dl (0.2-1.3); BLOOD UREA NITROGEN 17 mg/dl (7-20); CALCIUM 8.4 mg/dl (8.4-10.2); CARBON DIOXIDE 28 mmol/L (21-31); CHLORIDE 102 mmol/L (97-110); CREATININE 0.74 mg/dl (0.44-1.00); GLUCOSE 127 mg/dl (70-220); POTASSIUM 3.5 mmol/L (3.5-5.1); SODIUM 139 mmol/L (135-144); TOTAL PROTEIN 6.5 g/dl (6.1-8.1)
[2017-09-17] MEDS: INSULIN ASPART [NOVOLOG] 3 ML PEN SC ×7 (08:00→20:26)
[2017-09-17] MEDS: ENOXAPARIN 40 MG/0.4 ML SYG SC (08:36)
[2017-09-17] MEDS: AMLODIPINE 5 MG TAB PO (08:37)
[2017-09-17] MEDS: DOCUSATE SODIUM 100 MG CAP PO (08:38)
[2017-09-17] MEDS: LISINOPRIL 20 MG TAB PO (08:38)
[2017-09-17] MEDS: LORAZEPAM 2 MG INJ IV ×2 (10:48→20:33)
[2017-09-17] MEDS ORDERED: traMADol 50 MG TAB PO (11:30)
[2017-09-17] MEDS: INSULIN GLARGINE [LANTus] (100 UNITS/ML) SYG SC (20:00)
[2017-09-17] MEDS: GABAPENTIN 300 MG CAP PO (20:29)
[2017-09-18] MEDS: METOCLOPRAMIDE 10 MG INJ IV ×4 (00:45→17:24)
[2017-09-18] MEDS: INSULIN ASPART [NOVOLOG] 3 ML PEN SC ×9 (01:00→21:00)
[2017-09-18] MEDS: PANTOPRAZOLE 40 MG INJ IV ×2 (05:38→17:24)
[2017-09-18] MEDS: HYDROCODONE/APAP (5/325) TAB PO (05:39)
[2017-09-18] MEDS: SOD CHLORIDE 0.9% 1,000 ML IV ×2 (05:49→14:49)
[2017-09-18 06:51] LABS: ADD MAN DIFF? NO
[2017-09-18 07:03] LABS: BASOPHILS % 0.6 % (0.0-2.0); EOSINOPHILS % 0.4 % (0.0-7.0); HEMATOCRIT 31.2 % (37.0-47.0); HEMOGLOBIN 9.8 g/dl (12.0-16.0); LYMPHOCYTES # 2.3 10^3/ul (0.8-2.9); MEAN CORPUSCULAR HGB CONC 31.4 g/dl (32.0-37.0); MEAN CORPUSCULAR VOLUME 82.8 fl (82.0-101.0); MEAN PLATELET VOLUME 9.9 fl (7.4-10.4); MONOCYTE # 0.7 10^3/ul (0.3-0.9); MONOCYTES % 10.3 % (0.0-11.0); NEUTROPHIL # 3.9 10^3/ul (1.6-7.5); NEUTROPHILS % 55.4 % (39.0-77.0); PLATELET COUNT 399 10^3/UL (140-415); RED BLOOD COUNT 3.77 10^6/ul (4.20-5.40); RED CELL DISTRIBUTION WIDTH 14.4 % (11.5-14.5)
[2017-09-18 07:03] LABS: WHITE BLOOD COUNT 7.1 10^3/ul (4.8-10.8)
[2017-09-18 07:19] LABS: ALANINE AMINOTRANSFERASE 28 IU/L (13-69); ALBUMIN 3.4 g/dl (3.3-4.9); ALBUMIN/GLOBULIN RATIO 1.13; AMYLASE 81 U/L (11-123); ASPARTATE AMINO TRANSFERASE 24 IU/L (15-46); BILIRUBIN,INDIRECT 0.2 mg/dl (0-1.1); BILIRUBIN,TOTAL 0.2 mg/dl (0.2-1.3); CALCIUM 8.6 mg/dl (8.4-10.2); CARBON DIOXIDE 28 mmol/L (21-31); CREATININE 0.67 mg/dl (0.44-1.00); GLUCOSE 113 mg/dl (70-220); LIPASE 93 U/L (23-300); POTASSIUM 3.6 mmol/L (3.5-5.1); SODIUM 139 mmol/L (135-144); TOTAL PROTEIN 6.4 g/dl (6.1-8.1)
[2017-09-18 07:19] LABS: PHOSPHORUS 3.3 mg/dl (2.5-4.9)
[2017-09-18 07:36] LABS: ANION GAP 10 (8-16); BLOOD UREA NITROGEN 8 mg/dl (7-20); CHLORIDE 105 mmol/L (97-110)
[2017-09-18 08:11] LABS: ALKALINE PHOSPHATASE 74 IU/L (42-121)
[2017-09-18] MEDS: AMLODIPINE 5 MG TAB PO (08:40)
[2017-09-18] MEDS: DOCUSATE SODIUM 100 MG CAP PO (08:40)
[2017-09-18] MEDS: LISINOPRIL 20 MG TAB PO (08:41)
[2017-09-18] MEDS: LORAZEPAM 2 MG INJ IV ×3 (08:41→22:31)
[2017-09-18] MEDS: ENOXAPARIN 40 MG/0.4 ML SYG SC (08:49)
[2017-09-18 11:13] LABS: HEMOGLOBIN A1C 7.5 % (0-5.9)
[2017-09-18] MEDS: CEFTRIAXONE 1 GM/50 ML (PMX) 50 ML IVPB (14:41)
[2017-09-18] MEDS: FENTAnyl 50 MCG/ML VIAL (18:56)
[2017-09-18] MEDS: PROPOFOL 20 ML (18:56)
[2017-09-18] MEDS: GABAPENTIN 300 MG CAP PO (22:31)
[2017-09-18] MEDS: INSULIN GLARGINE [LANTus] (100 UNITS/ML) SYG SC (22:34)
[2017-09-19] MEDS: ACCU-CHEK XX (02:00)
[2017-09-19] MEDS: PANTOPRAZOLE 40 MG INJ IV (06:36)
[2017-09-19] MEDS: SOD CHLORIDE 0.9% 1,000 ML IV (06:36)
[2017-09-19] MEDS: METOCLOPRAMIDE 10 MG INJ IV ×3 (06:36→12:32)
[2017-09-19 07:02] LABS: ADD MAN DIFF? NO
[2017-09-19 07:09] LABS: BASOPHILS % 0.3 % (0.0-2.0); EOSINOPHILS # 0.1 10^3/ul (0.0-0.5); HEMATOCRIT 32.2 % (37.0-47.0); HEMOGLOBIN 10.3 g/dl (12.0-16.0); LYMPHOCYTES % 29.6 % (15.0-51.0); MEAN CORPUSCULAR HEMOGLOBIN 26.2 pg (29.0-33.0); MEAN CORPUSCULAR VOLUME 81.9 fl (82.0-101.0); MEAN PLATELET VOLUME 9.7 fl (7.4-10.4); MONOCYTE # 0.7 10^3/ul (0.3-0.9); MONOCYTES % 9.6 % (0.0-11.0); NEUTROPHIL # 4.1 10^3/ul (1.6-7.5); NEUTROPHILS % 59.2 % (39.0-77.0); PLATELET COUNT 389 10^3/UL (140-415); RED BLOOD COUNT 3.93 10^6/ul (4.20-5.40); RED CELL DISTRIBUTION WIDTH 14.1 % (11.5-14.5)
[2017-09-19 07:09] LABS: WHITE BLOOD COUNT 6.9 10^3/ul (4.8-10.8)
[2017-09-19 07:40] LABS: PHOSPHORUS 3.9 mg/dl (2.5-4.9)
[2017-09-19 07:40] LABS: ANION GAP 13 (8-16); BLOOD UREA NITROGEN 5 mg/dl (7-20); CALCIUM 8.9 mg/dl (8.4-10.2); CARBON DIOXIDE 27 mmol/L (21-31); CHLORIDE 105 mmol/L (97-110); CREATININE 0.61 mg/dl (0.44-1.00); GLUCOSE 112 mg/dl (70-220); MAGNESIUM 1.8 mg/dl (1.7-2.5); POTASSIUM 3.6 mmol/L (3.5-5.1); SODIUM 141 mmol/L (135-144)
[2017-09-19] MEDS: INSULIN ASPART [NOVOLOG] 3 ML PEN SC ×2 (08:00→12:32)
[2017-09-19] MEDS: DOCUSATE SODIUM 100 MG CAP PO (09:00)
[2017-09-19] MEDS: LISINOPRIL 20 MG TAB PO (09:27)
[2017-09-19] MEDS: AMLODIPINE 5 MG TAB PO (09:28)
[2017-09-19] MEDS: LORAZEPAM 2 MG INJ IV (09:33)
[2017-09-19] MEDS: ENOXAPARIN 40 MG/0.4 ML SYG SC (09:33)
== END 2017-09-19 14:57 | disposition home or self-care (01) ==
LOC: E/R 11:20 → PP2 14:23
DX: K20.8 Other esophagitis (principal); K29.70 Gastritis, unspecified, without bleeding; F41.9 Anxiety disorder, unspecified; F12.10 Cannabis abuse, uncomplicated; N39.0 Urinary tract infection, site not specified; E11.9 Type 2 diabetes mellitus without complications; I10 Essential (primary) hypertension
CPT/HCPCS: 36415; 80048; 80053; 80061; 80307; 81001; 82150; 82962; 83036; 83690; 83735; 84100; 84703; 85025; 87086; 96374; 96375; 96376; 99285-25; G0378

== ENCOUNTER 2018-06-02 19:58 | Emergency (ER) | payer BC ==
[2018-06-03] MEDS: KETOROLAC 30 MG INJ IM (00:10)
[2018-06-03] MEDS: LORAZEPAM 1 MG TAB PO (00:10)
== END 2018-06-03 00:17 | disposition home or self-care (01) ==
LOC: FTE 06-03 00:17
DX: M54.2 Cervicalgia (principal); M54.9 Dorsalgia, unspecified
CPT/HCPCS: 81025; 96372; 99284-25